=== PATIENT | male | born 1985 | race Caucasian/White ===

== ENCOUNTER 2017-05-22 14:53 | Emergency (ER) | payer SELFPAY ==
[~2017-05-22] VITALS: Ht 177.8 cm; Wt 97.0 kg
[~2017-05-22 14:53] MED LIST: DICL-86 PO; DICL50 PO; METH750T2 PO; PRED20 PO; Z.0.NO CURRENT MEDS
[2017-05-22 15:10] VITALS: BP 135/85; PULSE 91; RESP 18; TEMP 97.8; O2SAT 98
[2017-05-22] MEDS ORDERED: SODIUM CHLOR 0.9% 1000 ML INJ 1,000 ML IV SCH ×2 (15:30)
--- NOTE | 2017-05-22 15:50 | PD ---
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 He states symptoms really started yesterday when he got home from work. He felt poorly. He took a cold shower drink plenty of fluids and felt a little bit better. Today around noon or 1 PM while he was at work he didn't have recurrence of diffuse cramping, lightheadedness. History Past Medical History Medical History: Denies Significant Hx Past Surgical History Surgical History: No Previous Surgery Social History Alcohol Use: Yes (2-3 BEERS DAILY) Tobacco Use: Yes (1 PACK A DAY) Allergies-Medications (Allergen,Severity, Reaction): Coded Allergies: No Known Allergies (Verified , 05/22/17) Reported Meds & Prescriptions Reported Meds & Active Scripts Active No Active Prescriptions or Reported Medications Review of Systems Except as stated in HPI: all other systems reviewed are Neg Physical Exam Narrative GENERAL: Well-appearing 32-year-old man, no acute distress. SKIN: Focused skin assessment warm/dry. HEAD: Atraumatic. Normocephalic. EYES: Pupils equal and round. No scleral icterus. No injection or drainage. ENT: No nasal bleeding or discharge. Mucous membranes pink and moist. NECK: Trachea midline. No JVD. CARDIOVASCULAR: Regular rate and rhythm. No murmur appreciated. RESPIRATORY: No accessory muscle use. Clear to auscultation. Breath sounds equal bilaterally. GASTROINTESTINAL: Abdomen soft, non-tender, nondistended. Hepatic and splenic margins not palpable. MUSCULOSKELETAL: No obvious deformities. No clubbing. No cyanosis. No edema. NEUROLOGICAL: Awake and alert. No obvious cranial nerve deficits. Motor grossly within normal limits. Normal speech. PSYCHIATRIC: Appropriate mood and affect; insight and judgment normal. Data Data Last Documented VS Vital Signs Date Time Temp Pulse Resp B/P Pulse Ox O2 Delivery O2 Flow Rate FiO2 05/22/17 15:10 97.8 91 18 135/85 98 Orders Sodium Chlor 0.9% 1000 Ml Inj (Ns 1000 M (05/22/17 15:30) Sodium Chlor 0.9% 1000 Ml Inj (Ns 1000 M (8/1/17 15:30) Iv Access Insert/Monitor (05/22/17 15:30) Basic Metabolic Panel (Bmp) (05/22/17 15:30) Creatine Kinase (Cpk) (05/22/17 15:30) MDM Medical Decision Making Medical Screen Exam Complete: Yes Emergency Medical Condition: Yes Differential Diagnosis Dehydration, rhabdomyolysis, renal failure, electrolyte abnormalities, other Narrative Course Medical decision making INITIAL: Is a 32-year-old man presents emergent department with cramping and lightheadedness suggestive of dehydration and possible kidney injury. We'll check electrolytes, creatinine, total CK. Patient has a history kidney injury from dehydration in the past. We'll give IV fluid rehydration, outpatient follow-up. Patient was sent out the oncoming provider at 4 p.m. to follow-up on the results of diagnostic testing. Scripts No Active Prescriptions or Reported Meds Roderick Almaraz MD May 22, 2017 15:50
[2017-05-22 16:00] LABS: POTASSIUM 3.5 MEQ/L (3.5-5.1)
[2017-05-22 16:03] LABS: BICARBONATE 21.4 MEQ/L (21.0-32.0)
[2017-05-22 16:33] LABS: CKMB 4.8 NG/ML (0.5-3.6)
--- NOTE | 2017-05-22 16:41 | PD ---
Physical Exam Date Seen by Provider: May 22, 2017 Data Data Last Documented VS Vital Signs Date Time Temp Pulse Resp B/P Pulse Ox O2 Delivery O2 Flow Rate FiO2 05/22/17 15:10 97.8 91 18 135/85 98 Orders Sodium Chlor 0.9% 1000 Ml Inj (Ns 1000 M (05/22/17 15:30) Sodium Chlor 0.9% 1000 Ml Inj (Ns 1000 M (05/22/17 15:30) Iv Access Insert/Monitor (05/22/17 15:30) Basic Metabolic Panel (Bmp) (05/22/17 15:30) Creatine Kinase (Cpk) (05/22/17 15:30) CKMB (05/22/17 15:28) CKMB% (05/22/17 15:28) Sodium Chlor 0.9% 1000 Ml Inj (Ns 1000 M (05/22/17 16:45) Labs Laboratory Tests Test 05/22/17 15:28 Sodium Level 129 MEQ/L Potassium Level 3.5 MEQ/L Chloride Level 91 MEQ/L Carbon Dioxide Level 21.4 MEQ/L Anion Gap 17 MEQ/L Blood Urea Nitrogen 18 MG/DL Creatinine 2.40 MG/DL Estimat Glomerular Filtration 32 ML/MIN Rate Random Glucose 157 MG/DL Calcium Level 11.1 MG/DL Total Creatine Kinase 808 U/L Creatine Kinase MB 4.8 NG/ML Creatine Kinase MB % 0.6 % [facility] Medical Record Reviewed: Yes Supervised Visit with RUPERTO: No Interpretation(s) Vital Signs Date Time Temp Pulse Resp B/P Pulse Ox O2 Delivery O2 Flow Rate FiO2 05/22/17 15:10 97.8 91 18 135/85 98 Laboratory Tests Test 05/22/17 15:28 Sodium Level 129 MEQ/L (136-145) Potassium Level 3.5 MEQ/L (3.5-5.1) Chloride Level 91 MEQ/L (98-107) Carbon Dioxide Level 21.4 MEQ/L (21.0-32.0) Anion Gap 17 MEQ/L (5-15) Blood Urea Nitrogen 18 MG/DL (7-18) Creatinine 2.40 MG/DL (0.60-1.30) Estimat Glomerular Filtration 32 ML/MIN (>89) Rate Random Glucose 157 MG/DL (74-106) Calcium Level 11.1 MG/DL (8.5-10.1) Total Creatine Kinase 808 U/L (39-308) Differential Diagnosis Differential includes dehydration, rhabdomyolysis, electrolyte abnormality, renal failure Narrative Course Patient was sent out to me by Dr. Smith at change of shift. Please refer to previous providers chart for full history of present illness as well as medical workup. Patient is a 32-year-old male who presents to emergency with complaints of dehydration. 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 Reports that he has diffuse muscle cramping, lightheadedness, nausea. Patient was given 2 L of IV fluids. Patient reports that he is feeling much better at this time. Reports resolution of symptoms including nausea, muscle clubbing or lightheadedness. Patient is able to tolerate by mouth trial at this time. Sodium 129, BUN 18, creatinine 2.4, potassium 3.5, total CK 808 I reviewed all labs and all studies with patient in detail including all incidental findings. Patient will follow up with his pcp and will return to ER as needed. Understands need to drink plenty of fluids and understands need for repeat lab work by his pcp. Diagnosis Primary Impression: Dehydration Additional Impressions: Renal failure Qualified Code: N17.9 - Acute renal failure, unspecified acute renal failure type Rhabdomyolysis Qualified Code: M62.82 - Non-traumatic rhabdomyolysis Hyponatremia Patient Instructions: General Instructions Additional Instruction: Please provide patient with a copy of his lab work at discharge Please drink plenty of fluids Please follow up with your primary care doctor, your primary care doctor will need to repeat your lab work from today Return to ER as needed Return to ER if symptoms worsen or progress Scripts No Active Prescriptions or Reported Meds Disposition: 01 DISCHARGE HOME Condition: Stable Anna Rubin DO May 22, 2017 16:41
[2017-05-22] MEDS ORDERED: SODIUM CHLOR 0.9% 1000 ML INJ 1,000 ML IV ONE (16:45)
[2017-05-22 17:31] VITALS: BP 138/72; PULSE 80; RESP 16; O2SAT 99
== END 2017-05-22 17:41 | disposition home or self-care (01) ==
LOC: PHED 14:53
DX: E86.0 Dehydration (principal); N17.9 Acute kidney failure, unspecified; M62.82 Rhabdomyolysis; E87.1 Hypo-osmolality and hyponatremia; F17.210 Nicotine dependence, cigarettes, uncomplicated
CPT/HCPCS: 80048; 82550; 82552; 96360; 96361; 99284; J7030